=== PATIENT | male | born 1940 | race Asian ===

== ENCOUNTER 2019-04-13 16:22 | Inpatient (IN) | payer MEDICARE, MEDICAID ==
[~2019-04-13] VITALS: Ht 175.3 cm; Wt 72.6 kg
[2019-04-13] MEDS ORDERED: SODIUM CHLORIDE 0.9% 1,000 ML IV ONE (16:47)
[2019-04-13] MEDS ORDERED: ALBUTEROL (0.083%) 2.5MG/3ML NEB HHN STA (16:47)
[2019-04-13] MEDS ORDERED: METHYLPREDNISOLONE SOD SUCC 125 MG/2 ML VIAL IV STA (16:47)
[2019-04-13] MEDS ORDERED: IPRATROPIUM BROMIDE (0.02%) 0.5MG/2.5ML NEB HHN STA (16:47)
[2019-04-13] MEDS ORDERED: MAGNESIUM 2 G PREMIX 50 ML IV STA (16:47)
[2019-04-13 17:11] LABS: BASOPHILS % 0.2 % (0.0-2.0); CHLORIDE 98 mEq/L (98-107); EOSINOPHILS % 2.4 % (0.0-5.0); HEMATOCRIT. 45.3 % (42.0-52.0); HEMOGLOBIN. 15.3 g/dL (14.0-18.0); LYMPHOCYTES % 10.1 % (20.0-50.0); MEAN CORPUSCULAR HEMOGLOBIN 32.9 pg (28.0-32.0); MEAN CORPUSCULAR VOLUME 97.5 fL (80.0-94.0); MEAN PLATELET VOLUME 8.4 fl (7.4-10.4); MONOCYTES % 4.1 % (2.0-8.0); NEUTROPHILS % 83.2 % (40.0-76.0); PLATELET 113 x1000/uL (130-400); RED BLOOD CELL COUNT 4.64 mill/uL (4.7-6.1); RED CELL DISTRIBUTION WIDTH 13.9 % (11.6-14.6)
[2019-04-13 17:15] LABS: D-DIMER 0.28 mg/L FEU (<0.50); PROTHROMBIN TIME 10.5 sec (9.6-11.0)
[2019-04-13 17:44] LABS: CLARITY URINE CLEAR (CLEAR); COLOR URINE YELLOW (YELLOW); KETONES URINE 2+ (NEGATIVE); LEUKOCYTE ESTERASE URINE NEGATIVE (NEGATIVE); NITRITE URINE NEGATIVE (NEGATIVE); OCCULT BLOOD URINE 1+ (NEGATIVE); PH URINE 6.5 (4.5-8.0); PROTEIN URINE 1+ (NEGATIVE); SPECIFIC GRAVITY URINE 1.019 (1.005-1.030)
[2019-04-13] MEDS ORDERED: LEVOFLOXACIN 500MG PREMIX 100 ML IV ONE (18:00)
[2019-04-13] MEDS ORDERED: HYDROCODONE/ACETAMINOPHEN 5/325MG TABLET PO PRN (19:15)
[2019-04-13] MEDS ORDERED: ACETAMINOPHEN 325MG TABLET PO PRN (19:15)
[2019-04-13] MEDS ORDERED: ONDANSETRON HCL 4MG/2ML INJ IV PRN (19:15)
[2019-04-13 21:10] VITALS: BP 141/75
[2019-04-13] MEDS ORDERED: AZITHROMYCIN 500 MG TABLET PO NR (22:45)
[2019-04-13] MEDS ORDERED: TAMS-11 PO (23:14)
[2019-04-13] MEDS ORDERED: ATOR40TA70 PO (23:16)
[2019-04-13] MEDS ORDERED: LOSA50TA41 PO (23:16)
[2019-04-13] MEDS ORDERED: CARV3.1242 PO (23:16)
[2019-04-13] MEDS ORDERED: ACET-2178 PO (23:16)
[2019-04-13] MEDS: GUAIFENESIN 600MG ER TABLET PO SCH (23:30)
[2019-04-13] MEDS: METHYLPREDNISOLONE SOD SUCC 125 MG/2 ML VIAL IV SCH (23:30)
[2019-04-13] MEDS: SODIUM CHLORIDE 0.9% 1,000 ML IV SCH (23:30)
[2019-04-14 00:05] VITALS: BP 132/76
[2019-04-14 04:00] VITALS: BP 130/75
[2019-04-14] MEDS: IPRATROPIUM BROMIDE (0.02%) 0.5MG/2.5ML NEB HHN SCH ×4 (04:11→15:28)
[2019-04-14] MEDS: METHYLPREDNISOLONE SOD SUCC 125 MG/2 ML VIAL IV SCH ×3 (05:36→22:54)
[2019-04-14 06:50] LABS: HEMATOCRIT. 42.8 % (42.0-52.0); HEMOGLOBIN. 14.7 g/dL (14.0-18.0); MEAN CORPUSCULAR HEMOGLOBIN 33.3 pg (28.0-32.0); MEAN CORPUSCULAR VOLUME 96.8 fL (80.0-94.0); MEAN PLATELET VOLUME 8.9 fl (7.4-10.4); PLATELET 103 x1000/uL (130-400); RED BLOOD CELL COUNT 4.42 mill/uL (4.7-6.1); RED CELL DISTRIBUTION WIDTH 13.8 % (11.6-14.6)
[2019-04-14 07:13] LABS: CHLORIDE 101 mEq/L (98-107)
[2019-04-14 08:00] VITALS: BP 136/72
[2019-04-14] MEDS: GUAIFENESIN 600MG ER TABLET PO SCH ×2 (10:01→22:54)
[2019-04-14] MEDS: PANTOPRAZOLE SODIUM 40 MG/VIAL IV SCH (10:02)
[2019-04-14] MEDS: AZITHROMYCIN 250 MG TABLET PO SCH (10:06)
[2019-04-14] MEDS: ENOXAPARIN 40MG/0.4ML SYR SUBCUT SCH (10:07)
[2019-04-14 11:35] LABS: PLATELET ESTIMATE DECREASED
[2019-04-14 12:00] VITALS: BP 158/75
[2019-04-14] MEDS: BENZONATATE 100MG CAPSULE PO PRN ×2 (12:28→19:01)
[2019-04-14] MEDS ORDERED: FUROSEMIDE 20MG TABLET PO SCH (13:45)
[2019-04-14 16:00] VITALS: BP 137/78
[2019-04-14] MEDS ORDERED: IPRATROPIUM/ALBUTEROL 0.5-3(2.5)MG/3ML NEB HHN PRN (16:30)
[2019-04-14] MEDS ORDERED: GUAIFENESIN/CODEINE 100-10MG/5ML UDC PO PRN (16:45)
[2019-04-14] MEDS: CEFTRIAXONE 1 G PREMIX 50 ML IV SCH (19:01)
[2019-04-14] MEDS: IPRATROPIUM/ALBUTEROL 0.5-3(2.5)MG/3ML NEB HHN SCH (19:09)
[2019-04-14 20:00] VITALS: BP 135/81
[2019-04-14] MEDS: AMLODIPINE 5MG TABLET PO SCH (22:53)
[2019-04-14] MEDS: ATORVASTATIN CALCIUM 40MG TABLET PO SCH (22:53)
[2019-04-15] VITALS: BP 110/68
[2019-04-15] MEDS: IPRATROPIUM/ALBUTEROL 0.5-3(2.5)MG/3ML NEB HHN SCH ×6 (00:43→20:51)
[2019-04-15] MEDS: SODIUM CHLORIDE 0.9% 1,000 ML IV SCH ×2 (01:12→23:46)
[2019-04-15 04:00] VITALS: BP 124/64
[2019-04-15] MEDS: BENZONATATE 100MG CAPSULE PO PRN (06:21)
[2019-04-15] MEDS: METHYLPREDNISOLONE SOD SUCC 125 MG/2 ML VIAL IV SCH ×3 (06:21→21:17)
[2019-04-15 07:23] LABS: CHLORIDE 100 mEq/L (98-107)
[2019-04-15 07:25] LABS: HEMATOCRIT. 42.6 % (42.0-52.0); HEMOGLOBIN. 14.9 g/dL (14.0-18.0); MEAN CORPUSCULAR HEMOGLOBIN 33.7 pg (28.0-32.0); MEAN CORPUSCULAR VOLUME 96.4 fL (80.0-94.0); MEAN PLATELET VOLUME 9.2 fl (7.4-10.4); PLATELET 127 x1000/uL (130-400); RED BLOOD CELL COUNT 4.42 mill/uL (4.7-6.1); RED CELL DISTRIBUTION WIDTH 14.4 % (11.6-14.6)
[2019-04-15 07:43] LABS: LDL CHOLESTEROL 46 mg/dL (5-100)
[2019-04-15 07:45] LABS: HDL CHOLESTEROL 67 mg/dL (40-59)
[2019-04-15 08:00] VITALS: BP 153/85
[2019-04-15] MEDS: GUAIFENESIN 600MG ER TABLET PO SCH ×2 (09:25→21:17)
[2019-04-15] MEDS: AZITHROMYCIN 250 MG TABLET PO SCH (09:25)
[2019-04-15] MEDS: AMLODIPINE 5MG TABLET PO SCH ×2 (09:27→21:17)
[2019-04-15] MEDS: PANTOPRAZOLE SODIUM 40 MG/VIAL IV SCH (09:27)
[2019-04-15] MEDS: ENOXAPARIN 40MG/0.4ML SYR SUBCUT SCH (09:28)
[2019-04-15 12:00] VITALS: BP 142/75
[2019-04-15 13:37] LABS: PLATELET ESTIMATE SLIGHTLY DECREASED
[2019-04-15] MEDS: GUAIFENESIN/CODEINE 200-20MG/10ML UDC PO PRN (14:27)
[2019-04-15 16:00] VITALS: BP 140/73
[2019-04-15] MEDS: CEFTRIAXONE 1 G PREMIX 50 ML IV SCH (18:22)
[2019-04-15 20:00] VITALS: BP 135/68
[2019-04-15] MEDS: ATORVASTATIN CALCIUM 40MG TABLET PO SCH (21:17)
[2019-04-16] VITALS: BP 128/65
[2019-04-16] MEDS: IPRATROPIUM/ALBUTEROL 0.5-3(2.5)MG/3ML NEB HHN SCH ×6 (00:27→21:41)
[2019-04-16] MEDS: GUAIFENESIN/CODEINE 200-20MG/10ML UDC PO PRN ×3 (01:47→20:40)
[2019-04-16 04:00] VITALS: BP 131/72
[2019-04-16] MEDS: METHYLPREDNISOLONE SOD SUCC 125 MG/2 ML VIAL IV SCH ×3 (05:54→22:47)
[2019-04-16 06:39] LABS: HEMATOCRIT. 40.1 % (42.0-52.0); MEAN CORPUSCULAR HEMOGLOBIN 33.9 pg (28.0-32.0); MEAN CORPUSCULAR VOLUME 97.1 fL (80.0-94.0); MEAN PLATELET VOLUME 8.3 fl (7.4-10.4); PLATELET 120 x1000/uL (130-400); RED BLOOD CELL COUNT 4.13 mill/uL (4.7-6.1); RED CELL DISTRIBUTION WIDTH 14.1 % (11.6-14.6)
[2019-04-16 06:42] LABS: CHLORIDE 102 mEq/L (98-107)
[2019-04-16 08:00] VITALS: BP 132/67
[2019-04-16] MEDS: GUAIFENESIN 600MG ER TABLET PO SCH ×2 (10:18→20:41)
[2019-04-16] MEDS: AMLODIPINE 5MG TABLET PO SCH ×2 (10:19→20:41)
[2019-04-16] MEDS: BENZONATATE 100MG CAPSULE PO PRN (10:19)
[2019-04-16] MEDS: PANTOPRAZOLE SODIUM 40 MG/VIAL IV SCH (10:19)
[2019-04-16] MEDS: AZITHROMYCIN 250 MG TABLET PO SCH (10:19)
[2019-04-16] MEDS: ENOXAPARIN 40MG/0.4ML SYR SUBCUT SCH (10:20)
[2019-04-16 12:00] VITALS: BP 132/62
[2019-04-16 13:12] LABS: PLATELET ESTIMATE DECREASED
[2019-04-16 16:24] VITALS: BP 123/68
[2019-04-16] MEDS ORDERED: IOHEXOL-300 100 ML BOTTLE ONE (19:02)
[2019-04-16 20:00] VITALS: BP 135/65
[2019-04-16] MEDS: ATORVASTATIN CALCIUM 40MG TABLET PO SCH (20:41)
[2019-04-16] MEDS: CEFTRIAXONE 1 G PREMIX 50 ML IV SCH (20:41)
[2019-04-17] VITALS: BP 137/68
[2019-04-17] MEDS: IPRATROPIUM/ALBUTEROL 0.5-3(2.5)MG/3ML NEB HHN SCH ×6 (01:01→20:53)
[2019-04-17 04:00] VITALS: BP 137/69
[2019-04-17] MEDS: METHYLPREDNISOLONE SOD SUCC 125 MG/2 ML VIAL IV SCH ×3 (05:37→21:22)
[2019-04-17] MEDS: GUAIFENESIN/CODEINE 200-20MG/10ML UDC PO PRN ×3 (06:40→21:27)
[2019-04-17 06:55] LABS: HEMATOCRIT. 41.1 % (42.0-52.0); HEMOGLOBIN. 14.3 g/dL (14.0-18.0); LYMPHOCYTES % 7.5 % (20.0-50.0); MEAN CORPUSCULAR HEMOGLOBIN 33.7 pg (28.0-32.0); MEAN CORPUSCULAR VOLUME 96.5 fL (80.0-94.0); MEAN PLATELET VOLUME 8.6 fl (7.4-10.4); MONOCYTES % 2.9 % (2.0-8.0); NEUTROPHILS % 89.6 % (40.0-76.0); PLATELET 121 x1000/uL (130-400); RED BLOOD CELL COUNT 4.26 mill/uL (4.7-6.1); RED CELL DISTRIBUTION WIDTH 13.9 % (11.6-14.6)
[2019-04-17 07:02] LABS: CHLORIDE 102 mEq/L (98-107)
[2019-04-17 08:00] VITALS: BP 138/76
[2019-04-17] MEDS: AZITHROMYCIN 250 MG TABLET PO SCH (09:48)
[2019-04-17] MEDS: AMLODIPINE 5MG TABLET PO SCH ×2 (09:48→21:21)
[2019-04-17] MEDS: GUAIFENESIN 600MG ER TABLET PO SCH ×2 (09:48→21:21)
[2019-04-17] MEDS: PANTOPRAZOLE SODIUM 40 MG/VIAL IV SCH (09:48)
[2019-04-17] MEDS: ENOXAPARIN 40MG/0.4ML SYR SUBCUT SCH (09:48)
[2019-04-17 12:00] VITALS: BP 101/68
[2019-04-17 16:00] VITALS: BP 126/76
[2019-04-17] MEDS: CEFTRIAXONE 1 G PREMIX 50 ML IV SCH (16:37)
[2019-04-17 20:00] VITALS: BP 113/62
[2019-04-17] MEDS: ATORVASTATIN CALCIUM 40MG TABLET PO SCH (21:21)
[2019-04-18] VITALS: BP 125/69
[2019-04-18] MEDS: IPRATROPIUM/ALBUTEROL 0.5-3(2.5)MG/3ML NEB HHN SCH ×7 (00:44→22:27)
[2019-04-18 04:00] VITALS: BP 152/79
[2019-04-18] MEDS: METHYLPREDNISOLONE SOD SUCC 125 MG/2 ML VIAL IV SCH ×3 (06:23→21:57)
[2019-04-18 08:12] VITALS: BP 123/62
[2019-04-18] MEDS: OMEPRAZOLE 20MG CAPSULE EXTENDED RELEASE PO SCH (08:12)
[2019-04-18] MEDS: GUAIFENESIN 600MG ER TABLET PO SCH ×2 (08:12→21:58)
[2019-04-18] MEDS: AZITHROMYCIN 250 MG TABLET PO SCH (08:12)
[2019-04-18] MEDS: AMLODIPINE 5MG TABLET PO SCH ×2 (08:12→21:57)
[2019-04-18] MEDS: ENOXAPARIN 40MG/0.4ML SYR SUBCUT SCH (08:13)
[2019-04-18 12:04] VITALS: BP 133/70
[2019-04-18 15:46] VITALS: BP 156/73
[2019-04-18] MEDS: CEFTRIAXONE 1 G PREMIX 50 ML IV SCH (17:31)
[2019-04-18 20:00] VITALS: BP 138/73
[2019-04-18] MEDS: GUAIFENESIN/CODEINE 200-20MG/10ML UDC PO PRN (21:56)
[2019-04-18] MEDS: ATORVASTATIN CALCIUM 40MG TABLET PO SCH (21:58)
[2019-04-19] VITALS: BP 139/69
[2019-04-19] MEDS: IPRATROPIUM/ALBUTEROL 0.5-3(2.5)MG/3ML NEB HHN SCH ×5 (01:33→22:32)
[2019-04-19 04:00] VITALS: BP 132/74
[2019-04-19] MEDS: METHYLPREDNISOLONE SOD SUCC 125 MG/2 ML VIAL IV SCH (06:52)
[2019-04-19 08:00] VITALS: BP 143/71
[2019-04-19 08:10] LABS: CHLORIDE 101 mEq/L (98-107)
[2019-04-19 08:17] LABS: BASOPHILS % 0.1 % (0.0-2.0); HEMATOCRIT. 42.5 % (42.0-52.0); HEMOGLOBIN. 14.4 g/dL (14.0-18.0); LYMPHOCYTES % 8.1 % (20.0-50.0); MEAN CORPUSCULAR HEMOGLOBIN 33.2 pg (28.0-32.0); MEAN PLATELET VOLUME 8.6 fl (7.4-10.4); MONOCYTES % 6.4 % (2.0-8.0); NEUTROPHILS % 85.4 % (40.0-76.0); PLATELET 111 x1000/uL (130-400); RED BLOOD CELL COUNT 4.33 mill/uL (4.7-6.1); RED CELL DISTRIBUTION WIDTH 13.7 % (11.6-14.6)
[2019-04-19] MEDS: ENOXAPARIN 40MG/0.4ML SYR SUBCUT SCH (09:00)
[2019-04-19] MEDS: OMEPRAZOLE 20MG CAPSULE EXTENDED RELEASE PO SCH (10:01)
[2019-04-19] MEDS: GUAIFENESIN 600MG ER TABLET PO SCH (10:01)
[2019-04-19] MEDS: AMLODIPINE 5MG TABLET PO SCH ×2 (10:02→22:56)
[2019-04-19] MEDS: GUAIFENESIN/CODEINE 200-20MG/10ML UDC PO PRN (10:02)
[2019-04-19] MEDS: BUDESONIDE 0.5MG/2ML NEB HHN SCH ×2 (11:53→22:32)
[2019-04-19 12:00] VITALS: BP 137/75
[2019-04-19 16:00] VITALS: BP 128/79
[2019-04-19] MEDS: CEFTRIAXONE 1 G PREMIX 50 ML IV SCH (18:28)
[2019-04-19] MEDS: METHYLPREDNISOLONE SOD SUCC 40 MG/ML VIAL IV SCH (18:28)
[2019-04-19 20:00] VITALS: BP 153/83
[2019-04-19] MEDS: ATORVASTATIN CALCIUM 40MG TABLET PO SCH (22:56)
[2019-04-20] VITALS: BP 148/74
[2019-04-20] MEDS ORDERED: DIPHENHYDRAMINE 50MG/ML VIAL IV NR (01:45)
[2019-04-20 04:00] VITALS: BP 143/78
[2019-04-20] MEDS: IPRATROPIUM/ALBUTEROL 0.5-3(2.5)MG/3ML NEB HHN SCH ×4 (04:56→15:25)
[2019-04-20 06:33] LABS: CHLORIDE 99 mEq/L (98-107)
[2019-04-20 06:35] LABS: BASOPHILS % 0.1 % (0.0-2.0); HEMATOCRIT. 43.5 % (42.0-52.0); HEMOGLOBIN. 15.2 g/dL (14.0-18.0); LYMPHOCYTES % 8.9 % (20.0-50.0); MEAN CORPUSCULAR HEMOGLOBIN 33.5 pg (28.0-32.0); MEAN PLATELET VOLUME 8.5 fl (7.4-10.4); MONOCYTES % 8.3 % (2.0-8.0); NEUTROPHILS % 82.7 % (40.0-76.0); PLATELET 122 x1000/uL (130-400); RED BLOOD CELL COUNT 4.53 mill/uL (4.7-6.1); RED CELL DISTRIBUTION WIDTH 13.7 % (11.6-14.6)
[2019-04-20] MEDS: BUDESONIDE 0.5MG/2ML NEB HHN SCH (07:56)
[2019-04-20 08:00] VITALS: BP 119/61
[2019-04-20] MEDS: ENOXAPARIN 40MG/0.4ML SYR SUBCUT SCH (09:00)
[2019-04-20] MEDS: AMLODIPINE 5MG TABLET PO SCH (09:46)
[2019-04-20] MEDS: OMEPRAZOLE 20MG CAPSULE EXTENDED RELEASE PO SCH (09:46)
[2019-04-20] MEDS: METHYLPREDNISOLONE SOD SUCC 40 MG/ML VIAL IV SCH ×2 (09:46→17:29)
[2019-04-20] MEDS: GUAIFENESIN/CODEINE 200-20MG/10ML UDC PO PRN (11:02)
[2019-04-20 12:00] VITALS: BP 120/74
[2019-04-20] MEDS ORDERED: TERBUTALINE SULFATE 1MG/ML VIAL SUBCUT NR (14:45)
[2019-04-20 16:00] VITALS: BP 118/76
[2019-04-20] MEDS ORDERED: BISACODYL 10MG SUPP PR NR (16:15)
[2019-04-20] MEDS ORDERED: DOCUSATE SODIUM 100MG CAPSULE PO SCH (17:00)
[2019-04-20] MEDS ORDERED: LACTULOSE 20G/30ML UDC PO SCH (17:00)
[2019-04-20] MEDS ORDERED: FAMOTIDINE 20MG/2ML VIAL IV SCH (21:00)
[2019-04-20] MEDS ORDERED: THEOPHYLLINE ANHYDROUS 80 MG/15 ML 120ML PO SCH (22:00)
[2019-04-21] MEDS ORDERED: POLYETHYLENE GLYCOL 3350 (17GM) 1 DOSE PACK PO SCH (09:00)
== END 2019-04-20 19:00 | disposition home health service (06) | DRG 871 ==
LOC: ER 16:22 → 7WST 18:13 → EDBEDREQTM 18:16 → EDBEDREQ 18:16 → EDBEDREQSVC 18:16 → ENRESERV 20:41 → 7WST 04-17 10:56
PROVIDERS: ADMIT Family Medicine Adult Medicine; ATTEND Family Medicine Adult Medicine
DX: A41.9 Sepsis, unspecified organism (principal); J18.9 Pneumonia, unspecified organism; J96.21 Acute and chronic respiratory failure with hypoxia; E87.1 Hypo-osmolality and hyponatremia; J45.901 Unspecified asthma with (acute) exacerbation; H54.8 Legal blindness, as defined in USA; D69.6 Thrombocytopenia, unspecified; E78.00 Pure hypercholesterolemia, unspecified; G62.9 Polyneuropathy, unspecified; J43.9 Emphysema, unspecified; J47.9 Bronchiectasis, uncomplicated; K76.89 Other specified diseases of liver; N40.0 Benign prostatic hyperplasia without lower urinary tract symptoms; I10 Essential (primary) hypertension; R26.9 Unspecified abnormalities of gait and mobility; E78.5 Hyperlipidemia, unspecified; H26.9 Unspecified cataract; H40.9 Unspecified glaucoma; Z90.79 Acquired absence of other genital organ(s); Z85.038 Personal history of other malignant neoplasm of large intestine; Z93.3 Colostomy status; Z92.21 Personal history of antineoplastic chemotherapy; Z85.118 Personal history of other malignant neoplasm of bronchus and lung; Z82.49 Family history of ischemic heart disease and other diseases of the circulatory system; Z87.891 Personal history of nicotine dependence; Z79.899 Other long term (current) drug therapy
CPT/HCPCS: 36415; 71045; 71260; 76700; 80048; 80061; 81003; 83036; 83605; 83880; 84145; 84443; 84484; 85379; 92610; 93005; 93306; 93970; 94640; 94667; 97110; 97116; 97162; 97166; 97530; 99291; C9113; J0696; J1200; J1650; J1956; J2920; J2930; J3105; J3475; J7030; J7611; J7620; J7626; Q9967